=== PATIENT | female | born 1945 | race Caucasian/White ===

== ENCOUNTER 2017-05-14 18:37 | Emergency (ER) | payer OTHER ==
[~2017-05-14] VITALS: Ht 160 cm; Wt 95.4 kg
[~2017-05-14 18:37] MED LIST: 24HOUR ALLERGY10 MG PO; CALCIUM 500 +1 EACH PO; COZAAR100 MG PO; CYMBALTA60 MG PO; FEROSUL325 MG PO; FLONASE16 G1 BOTH NARES; LOW DOSE ASPIRI81 M1 PO; MOBIC15 MG PO; MULTIVITAMIN1 EAC2 PO; NEURONTIN600 MG PO; ODOR FREE GARL1 EAC1 PO; PATADAY2.5 ML BOTH EYES; PLAQUENIL200 MG PO; PREMPRO 0.31 TABLET PO; PREVACID30 MG PO; RESTASIS 01 DROP/0.4 BOTH EYES; SINGULAIR10 MG PO; SKELAXIN400 M1 PO; SYNTHROID50 MCG PO; TRAMADOL HCL50 MG PO; ZOFRAN4 MG PO; [UNRECOGNIZED DRUG - OTHER] PO
[2017-05-14] MEDS ORDERED: ULTRAM50 MG PO (20:15)
[2017-05-14 20:50] VITALS: BP 177/84
== END 2017-05-14 20:50 | disposition home or self-care (01) ==
LOC: EME 18:37
PROC: 0RSKXZZ Reposition Left Shoulder Joint, External Approach (ICD-10-PCS; principal; 2017-05-14)
DX: M24.412 Recurrent dislocation, left shoulder (principal)
CPT/HCPCS: 73030; 99281; 99284; J2405; J3010; S0020

== ENCOUNTER 2017-05-21 16:13 | Emergency (ER) | payer OTHER ==
[~2017-05-21] VITALS: Ht 160 cm; Wt 97.4 kg
[~2017-05-21 16:13] MED LIST changes: +ULTRAM50 MG PO
[2017-05-21] MEDS ORDERED: ULTRAM50 MG PO (17:46)
[2017-05-21 19:23] VITALS: BP 206/99
== END 2017-05-21 19:30 | disposition home or self-care (01) ==
LOC: EME 16:13
PROC: 0RSKXZZ Reposition Left Shoulder Joint, External Approach (ICD-10-PCS; principal; 2017-05-21)
DX: M24.412 Recurrent dislocation, left shoulder (principal); X50.9XXA Other and unspecified overexertion or strenuous movements or postures, initial encounter; I10 Essential (primary) hypertension; K21.9 Gastro-esophageal reflux disease without esophagitis
CPT/HCPCS: 73020; 73030; 99281; 99285; J1885; J2405; J3010; J7040

== ENCOUNTER 2017-06-16 09:46 | Inpatient (IN) | payer OTHER ==
[~2017-06-16] VITALS: Ht 160 cm; Wt 105.5 kg
[~2017-06-16 09:46] MED LIST changes: +BENEFIBER98 GM PO; +CENTRUM SILVER1 EAC4 PO; +COCONUT OIL1000 MG PO; +MIRALAX17 GM PO; +MOVE FREE ULTR1 EAC1 PO; -MULTIVITAMIN1 EAC2 PO; +NORVASC2.5 MG PO; +RESTASIS MULTI5.5 ML BOTH EYES; +SAVELLA50 MG PO; -SKELAXIN400 M1 PO; +SKELAXIN800 MG PO; +STOOL SOFTENER100 MG PO; +TYLENOL EXTRA500 MG PO; +VITAMIN D5000 UNI1 PO
[2017-06-16 10:57] VITALS: BP 173/70
[2017-06-16 17:33] VITALS: BP 144/65
[2017-06-16 20:05] VITALS: BP 141/64
[2017-06-17] VITALS (7 sets, daily range): BP systolic 129–161; BP diastolic 60–72
[2017-06-17 06:08] LABS: HEMATOCRIT 23.6 % (36.0-46.0); MCV 90.1 FL (83-99)
[2017-06-17 14:25] LABS: HEMATOCRIT 29.3 % (36.0-46.0); MCV 90.4 FL (83-99)
[2017-06-18 04:02] VITALS: BP 152/65
[2017-06-18 06:21] LABS: HEMATOCRIT 25.3 % (36.0-46.0)
[2017-06-18 07:05] VITALS: BP 138/63
[2017-06-18] MEDS ORDERED: ASPIRIN EC325 MG PO (09:10)
[2017-06-18] MEDS ORDERED: HYDROMORPHONE HC2 MG PO (09:12)
[2017-06-18 11:38] LABS: ANION GAP 5 MEQ/L (2-14); CHLORIDE 107 MEQ/L (99-109); POTASSIUM 3.3 MEQ/L (3.7-5.4); SAMPLE HEMOLYSIS CHECK 0; SAMPLE ICTERIC CHECK 0; SAMPLE LIPEMIA CHECK 0; SODIUM 142 MEQ/L (136-147)
[2017-06-18 11:43] LABS: GFR ESTIMATE (CALCULATED) > 59 mL/min/; GLUCOSE 159 mg/dL (70-99); UREA NITROGEN (BUN) 7 mg/dL (9-23)
[2017-06-18 12:02] LABS: WHITE BLOOD COUNT 9.2 K/uL (4.1-10.2)
[2017-06-18 12:12] LABS: IRON 13 MCG/DL (35-150)
[2017-06-18 12:27] LABS: FERRITIN 164 NG/ML (10-291)
[2017-06-18 15:24] LABS: HEMATOCRIT 29.9 % (36.0-46.0); MCV 90.9 FL (83-99)
[2017-06-18 15:30] LABS: ADD MIUA? NO; BILIRUBIN NEGATIVE; BLOOD NEGATIVE; COLOR YELLOW ((YELLOW)); GLUCOSE (STRIP) NEGATIVE; KETONES NEGATIVE; LEUKOCYTES NEGATIVE; NITRITE NEGATIVE; PROTEIN (STRIP) NEGATIVE; SPECIFIC GRAVITY 1.006 (1.000-1.030); UCUL ADDED? NO; UROBILINOGEN 0.2 MG/DL (0.2-1.0)
[2017-06-18 15:37] VITALS: BP 162/70
[2017-06-18 23:38] VITALS: BP 155/67
[2017-06-19 07:15] VITALS: BP 144/66
[2017-06-19 08:58] LABS: HEMATOCRIT 29.4 % (36.0-46.0); MCH 27.9 PG (29.0-34.0); MCHC 31.6 G/DL (30.0-36.0); MCV 88.3 FL (83-99); MEAN PLAT.VOLUME 9.6 uM^3 (9.5-12.4); PLATELET COUNT 362 K/uL (156-360); RBC DIS.WIDTH-CV 12.4 % (11.8-14.6); RED BLOOD COUNT 3.33 M/uL (3.80-5.20); WHITE BLOOD COUNT 11.1 K/uL (4.1-10.2)
[2017-06-19 09:37] LABS: ANION GAP 10 MEQ/L (2-14); CHLORIDE 103 MEQ/L (99-109); GFR ESTIMATE (CALCULATED) > 59 mL/min/; GLUCOSE 120 mg/dL (70-99); SAMPLE HEMOLYSIS CHECK 0; SAMPLE ICTERIC CHECK 0; SAMPLE LIPEMIA CHECK 0; SODIUM 139 MEQ/L (136-147); UREA NITROGEN (BUN) 9 mg/dL (9-23)
[2017-06-19] MEDS ORDERED: FERROUS SULFAT325 MG PO (09:45)
== END 2017-06-19 14:02 | DRG 483 ==
LOC: SDC 09:46 → 3EAST 15:14 → 2SOUTH 15:14 → ENRESERV 15:15 → SDC 16:07 → ENRESERV 17:05 → 3EAST 17:22
PROVIDERS: Nurse Practitioner Family; Orthopaedic Surgery; Physician Assistant Medical
PROC: 0RRK00Z Replacement of Left Shoulder Joint with Reverse Ball and Socket Synthetic Substitute, Open Approach (ICD-10-PCS; principal; 2017-06-16)
DX: M19.012 Primary osteoarthritis, left shoulder (principal); M75.102 Unspecified rotator cuff tear or rupture of left shoulder, not specified as traumatic; M24.412 Recurrent dislocation, left shoulder; D50.9 Iron deficiency anemia, unspecified; D63.8 Anemia in other chronic diseases classified elsewhere; M35.00 Sjogren syndrome, unspecified; M79.7 Fibromyalgia; K21.9 Gastro-esophageal reflux disease without esophagitis; E03.9 Hypothyroidism, unspecified; R01.1 Cardiac murmur, unspecified; I10 Essential (primary) hypertension; M19.90 Unspecified osteoarthritis, unspecified site; E87.6 Hypokalemia; R09.02 Hypoxemia; R50.82 Postprocedural fever; Z80.0 Family history of malignant neoplasm of digestive organs; Z96.651 Presence of right artificial knee joint
CPT/HCPCS: 71010; 80048; 81003; 82272; 82607; 82728; 82746; 83540; 84466; 85014; 85018; 85027; 85048; 87641; 90686; 94799; C1713; C1776; J0131; J0690; J1100; J1170; J2250; J2405; J2550; J2710; J2765; J2795; J3010; J7030; J7050